=== PATIENT | male | born 1995 | race Caucasian/White ===

== ENCOUNTER 2021-06-14 07:50 | Emergency (ER) | payer BC, SELFPAY ==
[2021-06-14 07:51] VITALS: BP 119/80; PULSE 87; RESP 16; TEMP 36.4; O2SAT 99; BMI 22.9
--- NOTE | 2021-06-14 08:34 | EDS_ITS ---
HPI HPI - URI History of Present Illness Chief Complaint: Cough Detail of Chief Complaint: Cough Informant: patient Onset/Context/Timing Onset: Month(s) (2) Context: Gradual Onset Timing: Waxes and wanes Quality: Red blood Location: Emesis Worsened by: Eating Solids Relieved by: - (Nothing) Associated Symptoms Associated Symptoms: Positive for Nasal Congestion, Nausea, Vomiting, Shortness of Breath and Productive Cough; Negative for Headache, Sinus Pressure, Myalgias, Diarrhea, Chest Pain, Nonproductive cough and Hemoptysis Narrative Narrative: Patient presents with cough and hematemesis. Patient states he has had a cough for the last couple months. Patient states it has been waxing and waning over that time. Patient states today he had an episode of emesis. Patient states the emesis appeared to have blood in it. Patient states it was red blood. Patient denies any coffee-ground emesis. Patient denies any d iarrhea, melena, or hematochezia. Patient denies any abdominal pain. Patient states his cough is worse in the morning and worse at night. Patient states it is worse after eating. Patient states he also feels short of breath. Patient states he had Covid back in March. ROS ROS ED Constitutional Constitutional ED: Denies chills or fever(s) Eyes Eyes: Denies blurry vision or change in vision ENT ENT ED: Reports rhinorrhea; Denies sore throat Cardiovascular Cardiovascular: Denies chest pain or palpitations Respiratory/Chest Respiratory/Chest: Reports cough and dyspnea Gastrointestinal Gastrointestinal: Reports nausea and vomiting; Denies abdominal pain, diarrhea or melena Genitourinary Genitourinary ED: Denies dysuria or hematuria Musculoskeletal Musculoskeletal: Reports back pain; Denies neck pain Integumentary Denies abscess or rash Neurologic Neurologic: Denies headache(s) or weakness Allergic/Immunologic Allergic/Immunologic ED: Denies mouth swelling or urticaria [facility] Medical History (Updated 06/14/21 @ 11:[address] Tomas Ruano DO) COVID-19 Home Medications albuterol sulfate 2 inh INHALATION Q4H PRN 06/14/21 [History Last Taken Unknown] Allergy/AdvReac Type Severity Reaction Status Date / Time No Known Allergies Allergy Verified 06/14/21 07:52 Surgical History (Updated 06/14/21 @ 08:[address] Tomas Ruano DO) Hx of eye surgery Social History Smoking Status: Former smoker EXAM Physical Exam Const Vital Signs: 06/14/21 07:51 06/14/21 08:24 Temperature 97.6 F L Temperature Source Temporal Pulse Rate 87 Respiratory Rate 16 Respiratory Effort Normal Non-Labored Respiratory Depth Normal Respiratory Pattern Normal Blood Pressure 119/80 Blood Pressure Mean 93 Pulse Ox 99 Oxygen Delivery Method Room Air Room Air Positive well nourished and well developed General Appearance ED: well developed HEENT Reports moist mucous membranes Neck supple and no JVD Resp normal respiratory effort and clear to auscultation bilaterally Cardio regular rate, regular rhythm and no murmurs Rate: regular rate Rhythm: regular rhythm GI normal to inspection, nondistended, normoactive bowel sounds and non-tender Palpation: soft Extremity normal to inspection General Extremety ED: Negative for edema or tenderness General Extremity: Negative for edema Neuro oriented x3, CN's II-XII intact bilaterally and no sensory deficits noted Sensorium / Orientation: alert Motor Exam: strength 5/5 throughout Psych mental status grossly normal Skin no rashes or lesions noted MDM MDM MDM Narrative Medical decision making narrative: Patient was given IV fluids and Zofran here. CBC was essentially within normal limits. PT was INR and PT were normal. Ultrasound comprehensive metabolic profile was obtained and was within normal limits. Lipase was normal. Portable 1 view chest x-ray was obtained. On my interpretation, lung bey are clear. There is normal cardiac silhouette. Bony thorax is normal. There is no acute process noted. Radiologist also interpreted the x-ray and agrees. Patient was advised of his findings. Patient had no other episodes of vomiting here in the emergency department let alone any episodes of hematemesis. With the patient's normal hemoglobin, I do not feel the patient needs to be admitted to the hospital at this time. Patient was advised that this is most likely a viral illness. Patient was instructed to follow-up with his primary care physician in 5 to 7 days. Patient was instructed to watch for any further episodes of hematemesis. Patient was also instructed to watch for any episodes of black or tarry stools, maroon stools, or bright red stools. Patient understood and was agreeable with the plan. All questions were answered. Lab Data Labs: Laboratory Results - last 24 hr 06/14/21 06/14/21 06/14/21 08:50 08:50 08:50 WBC 5.1 RBC 5.75 Hgb 17.0 H Hct 49.3 MCV 85.7 MCH 29.6 MCHC 34.5 RDW Std Deviation 37.3 RDW Coeff of Liban 11.9 Plt Count 262 MPV 9.1 Immature Gran % (Auto) 0.400 Neut % (Auto) 45.8 L Lymph % (Auto) 36.6 Blaine % (Auto) 6.5 Eos % (Auto) 9.3 H Baso % (Auto) 1.4 H Absolute Neuts (auto) 2.3 Absolute Lymphs (auto) 1.86 Nucleated RBC % 0 PT 13.0 INR 1.0 APTT 29.5 Sodium 137 Potassium 4.1 Chloride 106 Carbon Dioxide 28.0 Anion Gap 3 L BUN 14 Creatinine 0.96 Estim Creat Clear Calc 119.70 Est GFR (MDRD) Af Amer 122 Est GFR (MDRD) Non-Af 100 BUN/Creatinine Ratio 14.6 Glucose 88 Calcium 8.6 Total Bilirubin 0.40 AST 32 ALT 83 H Alkaline Phosphatase 71 Total Protein 7.9 Albumin 4.2 Globulin 3.7 Albumin/Globulin Ratio 1.1 Lipase 140 Radiography Diagnostic Testing: Clinical Impression(s) from Imaging Studies Chest X-Ray 06/14/21 10:15 IMPRESSION: Normal x-ray examination of the chest. Electronically Signed: Shreyas Nice MD at 10:52 EDT Reading Location ID and State: [address] [place] [address] , Service support , Discharge Plan Triage Chief Complaint: Cough ED Provider: Tomas Ruano Dx/Rx/DC Orders Clinical Impression: Viral illness, History of hematemesis Instructions: ED Viral Syndrome (Adult) Prescriptions: No Action albuterol sulfate 90 mcg/actuation Aerosol Powdr Breath Activated 2 inh INHALATION Q4H PRN (Reason: Shortness Of Breath) RF: 0 Referrals: [facility] [Other] - 5-7 Days Disposition Disposition: Home, Self Care
[2021-06-14] MEDS: 0.9% Normal Saline 1,000 ML 1000 ML IV (09:02)
[2021-06-14 09:04] LABS: Absolute Lymphocyte Count 1.86 X10^3/uL (0.83-4.51); Absolute Neutrophil Count 2.3 X10^3/uL (2.0-7.7); Basophil# 0.07 X10^3/uL; Basophil% 1.4 % (0-1); Eosinophil# 0.47 X10^3/uL; Eosinophils% 9.3 % (0-5); Hematocrit 49.3 % (40-54); Lymphocyte # 1.86 X10^3/ul (0.83-4.51); Lymphocyte % 36.6 % (19-41); Mean Corp Hgb Conc 34.5 g/dL (32-36); Mean Corpuscular Hgb 29.6 pg (27.0-32.0); Mean Corpuscular Volume 85.7 fL (80-94); Mean Platelet Vol. 9.1 fl (6.2-12.0); Monocyte# 0.33 X10^3/uL; Monocyte% 6.5 % (0-10); NRBC Flagged by Analyzer 0 % (0-5); Neutrophil # 2.33 X10^3/uL (2.7-7.7); Neutrophil % 45.8 % (47-70); Platelet Count 262 K/mm3 (150-450); RBC Distribution Width CV 11.9 % (11.6-14.6); RBC Distribution Width SD 37.3 fl (35.1-43.9); Red Blood Count 5.75 M/mm3 (4.6-6.2); White Blood Count 5.1 K/mm3 (4.4-11.0)
[2021-06-14 09:12] LABS: Partial Thromboplast Time 29.5 Seconds (24.1-36.2)
[2021-06-14 09:19] LABS: ALB/GLOB Ratio 1.1 RATIO (0.9-2.4); AST(SGOT) 32 U/L (15-37); Alanine Aminotransfer ALT/SGPT 83 U/L (16-61); Albumin, Serum 4.2 g/dL (3.2-5.0); Alkaline Phosphatase 71 U/L (45-117); Anion Gap 3 (5-15); BUN 14 mg/dL (7-18); BUN/Creat Ratio 14.6 RATIO (10-20); Calcium,Total 8.6 mg/dL (8.5-10.1); Chloride 106 mmol/L (98-107); Creatinine, Serum 0.96 mg/dL (0.70-1.30); EST Glomerular Filtration Rate 100 mL/min (>60); Est Glom Filt Rate - Afr Amer 122 mL/min (>60); Globulin 3.7 g/dL (2.2-4.2); Glucose 88 mg/dL (74-106); Lipase 140 U/L (73-393); Potassium 4.1 mmol/L (3.5-5.1); Protein, Total 7.9 g/dL (6.4-8.2); Sodium Level 137 mmol/L (136-145)
--- NOTE | 2021-06-14 10:15 | RAD_ITS ---
STUDY: X-RAY CHEST REASON FOR EXAM: Male, 25 years old. Cough TECHNIQUE: Single AP portable view of the chest. COMPARISON: None. FINDINGS: The lungs are clear and expanded. There is no demonstrated pleural abnormality. Normal size heart. Normal mediastinum and gladys. Normal visualized pulmonary arteries. Normal visualized aortic arch and descending thoracic aorta. Normal visualized thoracic spine. Normal visualized ribs, clavicles, and shoulders. There is no demonstrated abnormality of the visualized soft tissue structures of the upper abdomen. RAD/Chest 1 View (Portable) IMPRESSION: Normal x-ray examination of the chest. Electronically Signed: Shreyas Nice MD at 10:52 EDT ,
[2021-06-14 11:45] VITALS: BP 120/81; PULSE 90; RESP 16; O2SAT 99
== END 2021-06-14 11:46 | disposition home or self-care (01) ==
PROVIDERS: Emergency Provider Emergency Medicine; Visit Provider Emergency Medicine
DX: B34.9 Viral infection, unspecified (principal); K92.0 Hematemesis; R06.02 Shortness of breath; R09.81 Nasal congestion; Z20.822 Contact with and (suspected) exposure to COVID-19; R11.2 Nausea with vomiting, unspecified; Z87.891 Personal history of nicotine dependence; Z86.16 Personal history of COVID-19
CPT/HCPCS: 71045; 80053; 83690; 85025; 85610; 85730; 87428; 96361; 96374; 99284; J7030; A4216